=== PATIENT | male | born 1975 | race Caucasian/White ===

== ENCOUNTER 2016-11-21 08:20 | Outpatient (CLI) | payer BC, OTHER | END 2016-11-21 08:21 | disposition home or self-care (01) | LOC: LAB.WCP 08:20 | DX: C81.90 Hodgkin lymphoma, unspecified, unspecified site (principal) | CPT/HCPCS: 36415; 84443 ==

== ENCOUNTER 2017-08-01 08:00 | Outpatient (CLI) | payer BC, OTHER | END 2017-08-01 08:01 | disposition home or self-care (01) | LOC: LAB.WCP 08:00 | PROVIDERS: ATTEND Radiology Radiation Oncology | DX: C81.90 Hodgkin lymphoma, unspecified, unspecified site (principal) | CPT/HCPCS: 36415; 84443 ==

== ENCOUNTER 2018-08-12 14:47 | Outpatient (CLI) | payer BC | END 2018-08-12 14:48 | disposition home or self-care (01) | LOC: LAB.WCP 14:47 | PROVIDERS: ATTEND Radiology Radiation Oncology | DX: C81.90 Hodgkin lymphoma, unspecified, unspecified site (principal) | CPT/HCPCS: 36415; 84443 ==

== ENCOUNTER 2019-02-25 09:05 | Outpatient (CLI) | payer BC ==
[2019-02-25 15:46] LABS: BASOPHILS % (AUTO) 0.8 %; EOSINOPHILS # (AUTO) 0.1 10^3/uL (0.0-0.7); EOSINOPHILS % (AUTO) 2.2 %; HGB - HEMOGLOBIN 14.4 g/dL (14.0-18.0); LYMPHOCYTES # (AUTO) 0.7 10^3/uL (1.5-3.5); LYMPHOCYTES % (AUTO) 18.3 %; MEAN CORPUSCULAR HEMOGLOBIN 29.6 pg (27.0-31.0); MEAN CORPUSCULAR HGB CONC 32.8 g/dL (32.0-36.0); MEAN CORPUSCULAR VOLUME 90.1 fL (80.0-94.0); MEAN PLATELET VOLUME 9.3 fL (7.4-11.4); MONOCYTES # (AUTO) 0.5 10^3/uL (0.0-1.0); MONOCYTES % (AUTO) 12.7 %; NEUTROPHILS # (AUTO) 2.4 10^3/uL (1.5-6.6); NEUTROPHILS % (AUTO) 65.5 %; PLT - PLATELET COUNT 343 10^3/uL (130-450); RED BLOOD COUNT 4.87 10^6/uL (4.70-6.10); RED CELL DISTRIBUTION WIDTH 12.8 % (12.0-15.0); WHITE BLOOD COUNT 3.7 x10^3/uL (4.8-10.8)
[2019-02-25 16:23] LABS: ALBUMIN 4.3 g/dL (3.2-5.5); ALBUMIN/GLOBULIN RATIO 1.6 (1.0-2.2); ALKALINE PHOSPHATASE 47 IU/L (42-121); ALT ALANINE AMINOTRANSFERASE 39 IU/L (10-60); AST ASPARTATE AMINOTRANSFERASE 32 IU/L (10-42); BILIRUBIN,TOTAL 0.5 mg/dL (0.2-1.0); BUN - BLOOD UREA NITROGEN 13 mg/dL (6-20); CALCIUM 9.2 mg/dL (8.5-10.3); CARBON DIOXIDE - CO2 29 mmol/L (21-32); CHLORIDE 102 mmol/L (101-111); CHOL/HDL RATIO 3.1 (<5.0); CHOLESTEROL 201 mg/dL; GFR - MDRD 81 (>89); GLUCOSE 89 mg/dL (70-100); HDL CHOLESTEROL 65 mg/dL; LDL CHOLESTEROL,CALCULATED 120 mg/dL; LDL/HDL RATIO 1.8 (<3.6); SODIUM 137 mmol/L (135-145); VLDL CHOLESTEROL 16 mg/dL
== END 2019-02-25 23:59 | disposition home or self-care (01) ==
LOC: LAB.WCP 09:05
PROVIDERS: ATTEND Physician Assistant Medical
DX: J45.20 Mild intermittent asthma, uncomplicated (principal); I10 Essential (primary) hypertension; J32.9 Chronic sinusitis, unspecified; Z85.71 Personal history of Hodgkin lymphoma
CPT/HCPCS: 36415; 80053; 80061; 83721; 85025

== ENCOUNTER 2019-03-04 14:59 | Outpatient (CLI) | payer BC | END 2019-03-04 23:59 | disposition home or self-care (01) | LOC: LAB.WCP 14:59 | PROVIDERS: ATTEND Radiology Radiation Oncology | DX: C81.90 Hodgkin lymphoma, unspecified, unspecified site (principal) | CPT/HCPCS: 36415; 84443 ==

== ENCOUNTER 2019-09-19 14:10 | Outpatient (CLI) | payer BC | END 2019-09-19 23:59 | disposition home or self-care (01) | LOC: COV 14:10 | PROVIDERS: ATTEND Family Medicine | DX: R50.9 Fever, unspecified (principal); R05 Cough; R06.02 Shortness of breath; M79.10 Myalgia, unspecified site; R53.83 Other fatigue; R11.0 Nausea; Z20.828 Contact with and (suspected) exposure to other viral communicable diseases ==

== ENCOUNTER 2019-11-11 22:21 | Emergency (ER) | payer OTHER ==
--- NOTE | 2019-11-11 23:15 | ED Physician Documentation ---
History of Present Illness - Stated complaint Stated Complaint: POTASSIUM PER DOCTOR - Chief complaint Chief Complaint: General - History obtained from History obtained from: Patient - Additonal information Additional information: 44-year-old male who was sent over by his medical provider for low potassium. The patient denies any complaints he reports he is run out of his potassium supplements. Review of Systems Ten Systems: 10 systems reviewed and negative Constitutional: reports: Reviewed and negative Eyes: reports: Reviewed and negative Ears: reports: Reviewed and negative Nose: reports: Reviewed and negative Throat: reports: Reviewed and negative Cardiac: reports: Reviewed and negative Respiratory: reports: Reviewed and negative GI: reports: Reviewed and negative : reports: Reviewed and negative Skin: reports: Reviewed and negative Musculoskeletal: reports: Reviewed and negative Neurologic: reports: Reviewed and negative Psychiatric: reports: Reviewed and negative Endocrine: reports: Reviewed and negative Immunocompromised: reports: Reviewed and negative PD PAST MEDICAL HISTORY - Past Medical History Cardiovascular: Hypertension Respiratory: None Endocrine/Autoimmune: None GI: None : None HEENT: None Psych: None Musculoskeletal: None Derm: None - Past Surgical History Past Surgical History: Yes - Present Medications Home Medications: Ambulatory Orders Medication Instructions Recorded Confirmed lisinopriL [Lisinopril] 20 mg ORAL DAILY 01/31/14 04/26/15 Fluticasone [Flonase] 1 spray INH BID PRN 04/26/15 04/26/15 Hydrochlorothiazide 25 mg PO DAILY 04/26/15 04/26/15 Gentamicin 0.3% Ophth Drops 1 drops OPTH BID 05/03/15 05/03/15 [Garamycin] - Allergies Allergies/Adverse Reactions: Allergies Allergy/AdvReac Type Severity Reaction Status Date / Time No Known Drug Allergies Allergy Verified 01/31/14 14:54 - Social History Does the pt smoke?: No Smoking Status: Never smoker Does the pt drink ETOH?: Yes Does the pt have substance abuse?: No - Immunizations Immunizations are current?: No Immunizations: TDAP >10years/unknown PD ED PE NORMAL - Vitals Vital signs reviewed: Yes - General General: Alert and oriented X 3, No acute distress - HEENT HEENT: PERRL - Neck Neck: Supple, no meningeal sign - Cardiac Cardiac: RRR, No murmur - Respiratory Respiratory: Clear bilaterally - Abdomen Abdomen: Normal bowel sounds, Soft, Non tender, Non distended - Derm Derm: Warm and dry - Extremities Extremities: No deformity - Neuro Neuro: Alert and oriented X 3 - Psych Psych: Normal mood, Normal affect Results - Vitals Vitals: Vital Signs - 24 hr 11/11/19 11/12/19 22:27 00:00 Temperature 37 C 36.8 C Heart Rate 94 94 Respiratory 16 16 Rate Blood Pressure 133/83 H 141/103 H O2 Saturation 97 98 Oxygen O2 Source Room air - Labs Labs: Laboratory Tests 11/11/19 22:58 Potassium 2.9 L PD MEDICAL DECISION MAKING - ED course Complexity details: reviewed results, re-evaluated patient, d/w patient, d/w family ED course: 44-year-old male with a potassium level of 2.9. He is run out of his potassium supplements he was given 40 mg of K-Dur.Patient has a prescription for potassium supplements that he will fill tomorrow morning and he will follow-up with his medical provider tomorrow. Departure - Departure Disposition: 01 Home, Self Care Clinical Impression: Hypokalemia Condition: Stable Instructions: Hypokalemia Dc Follow-Up: Jamia Dallas PA-C [Primary Care Provider] - Comments: Please follow-up with a medical provider tomorrow. Continue to take your potassium as directed. Return to the emergency department with any concerns. Discharge Date/Time: 11/12/19 00:12
[2019-11-11] MEDS ORDERED: POTASSIUM CHLORIDE 20 MEQ TABLET PO STA (23:48)
[2019-11-12 00:11] VITALS: BP 141/103
== END 2019-11-12 00:12 | disposition home or self-care (01) ==
LOC: ED 22:21
DX: E87.6 Hypokalemia (principal); I10 Essential (primary) hypertension
CPT/HCPCS: 36415; 84132; 99283; A9270

== ENCOUNTER 2020-03-23 08:00 | Outpatient (CLI) | payer OTHER | END 2020-03-23 23:59 | disposition home or self-care (01) | LOC: LAB.WCP 08:00 | PROVIDERS: ATTEND Radiology Radiation Oncology | DX: C81.90 Hodgkin lymphoma, unspecified, unspecified site (principal) | CPT/HCPCS: 36415; 84443 ==

== ENCOUNTER 2022-08-09 08:13 | Outpatient (CLI) | payer OTHER ==
[2022-08-09 11:47] LABS: BASOPHILS % (AUTO) 0.5 %; EOSINOPHILS # (AUTO) 0.1 10^3/uL (0.0-0.7); EOSINOPHILS % (AUTO) 3.1 %; HCT - HEMATOCRIT 41.6 % (42.0-52.0); HGB - HEMOGLOBIN 13.7 g/dL (14.0-18.0); LYMPHOCYTES % (AUTO) 26.5 %; MEAN CORPUSCULAR HEMOGLOBIN 28.9 pg (27.0-31.0); MEAN CORPUSCULAR HGB CONC 32.9 g/dL (32.0-36.0); MEAN CORPUSCULAR VOLUME 87.8 fL (80.0-94.0); MEAN PLATELET VOLUME 9.8 fL (7.4-11.4); MONOCYTES # (AUTO) 0.4 10^3/uL (0.0-1.0); MONOCYTES % (AUTO) 11.4 %; NEUTROPHILS # (AUTO) 2.2 10^3/uL (1.5-6.6); NEUTROPHILS % (AUTO) 58.2 %; PLT - PLATELET COUNT 305 10^3/uL (130-450); RED BLOOD COUNT 4.74 10^6/uL (4.70-6.10); RED CELL DISTRIBUTION WIDTH 12.6 % (12.0-15.0); WHITE BLOOD COUNT 3.9 x10^3/uL (4.8-10.8)
[2022-08-09 11:55] LABS: ALBUMIN 4.2 g/dL (3.2-5.5); ALBUMIN/GLOBULIN RATIO 1.6 (1.0-2.2); ALKALINE PHOSPHATASE 65 IU/L (42-121); ALT ALANINE AMINOTRANSFERASE 66 IU/L (10-60); AST ASPARTATE AMINOTRANSFERASE 43 IU/L (10-42); BILIRUBIN,TOTAL 0.6 mg/dL (0.2-1.0); BUN - BLOOD UREA NITROGEN 12 mg/dL (6-20); CALCIUM 8.8 mg/dL (8.5-10.3); CARBON DIOXIDE - CO2 27 mmol/L (21-32); CHLORIDE 104 mmol/L (101-111); CHOL/HDL RATIO 3.2 (<5.0); CHOLESTEROL 197 mg/dL; CREATININE 0.9 mg/dL (0.6-1.2); GFR - MDRD 109 (>89); GLUCOSE 108 mg/dL (70-100); HDL CHOLESTEROL 61 mg/dL; LDL CHOLESTEROL,CALCULATED 110 mg/dL; LDL/HDL RATIO 1.8 (<3.6); POTASSIUM 3.4 mmol/L (3.5-5.0); SODIUM 138 mmol/L (135-145); TOTAL PROTEIN 6.9 g/dL (6.7-8.2); TRIGLYCERIDES 131 mg/dL; VLDL CHOLESTEROL 26 mg/dL
[2022-08-09 12:16] LABS: THYROID STIMULATING HORMONE 2.78 uIU/mL (0.34-5.60)
[2022-08-10 04:08] LABS: HBsAG SCREEN Negative (Negative); HEPATITIS B SURFACE AB QUANT 3.7 mIU/mL (Immunity>9.9)
[2022-08-10 14:09] LABS: HCV AB Non Reactive (Non Reactive)
== END 2022-08-09 08:14 | disposition home or self-care (01) ==
LOC: LAB.N 08:13
PROVIDERS: ATTEND Physician Assistant Medical
DX: Z00.00 Encounter for general adult medical examination without abnormal findings (principal); R74.8 Abnormal levels of other serum enzymes
CPT/HCPCS: 36415; 80053; 80061; 83721; 84153; 84443; 85025; 86317; 86704; 86709; 86803; 87340

== ENCOUNTER 2022-09-01 07:52 | Outpatient (CLI) | payer OTHER ==
--- NOTE | 2022-09-01 11:28 | Ultrasound Report ---
PROCEDURE: Abdomen Limited INDICATIONS: ELEVATED LIVER ENZYMES TECHNIQUE: Real-time focused scanning was performed of the abdomen, with image documentation. COMPARISONS: None. FINDINGS: Liver measures 15 cm. Echotexture is within normal limits. No focal right upper quadrant tenderness. No cholelithiasis. CBD measures 3 to 4 mm, within normal limits. Pancreatic head is unremarkable. Right kidney 12 cm. Proximal aorta is nonaneurysmal IVC is patent. IMPRESSION: No acute sonographic abnormality in the right upper quadrant Reviewed by: Doyle Washington MD on 09/01/2022 11:27 AM PDT Approved by: Doyle Washington MD on 09/01/2022 11:27 AM PDT Station ID: [id number]
== END 2022-09-01 07:53 | disposition home or self-care (01) ==
LOC: DI 07:52
PROVIDERS: ATTEND Physician Assistant Medical
DX: R74.01 Elevation of levels of liver transaminase levels (principal)

== ENCOUNTER 2023-07-31 08:49 | Outpatient (CLI) | payer OTHER ==
--- NOTE | 2023-08-01 10:23 | Ultrasound Report ---
ULTRASOUND OF LEFT AXILLA: 07/31/2023 CLINICAL: Palpable left axilla lump. No prior exams were available for comparison. Color flow ultrasound of the left axilla was performed. [place]rano scale images of the real-time examinat ion were reviewed. There is a 3.4 cm x 1.1 cm x 0.4 cm oval lipoma with a circumscribed margin oriented parallel to the skin in the left axillary tail. This oval lipoma is hyperechoic. This correlates as palpated. [place] r flow imaging demonstrates that there is no vascularity present. IMPRESSION: BENIGN There is no sonographic evidence of malignancy. The 3.4 cm x 1.1 cm x 0.4 cm oval lipoma is consistent with a lipoma and is benign. No suspicious adenopathy. Findings were conveyed to the patient at time of exam. This exam was interpreted at Station ID: [id number]. Electronically Signed By: Ava flores/:07/31/2023 11:11:09 letter sent: No_Letter Ultrasound BI-RADS: 2 Benign BI-RADS CATEGORY: (2) - 2 Unspecified - other recall n/a LATERALITY: (B)
== END 2023-07-31 08:50 | disposition home or self-care (01) ==
LOC: DI 08:49
PROVIDERS: ATTEND Physician Assistant Medical
DX: D17.1 Benign lipomatous neoplasm of skin and subcutaneous tissue of trunk (principal)